=== PATIENT | male | born 1985 | race Caucasian/White ===

== ENCOUNTER → 2017-10-27 | Outpatient (CLI) | payer BC ==
[2015-11-04 12:10] VITALS: BMI 26.7
[~2017-10-27] MED LIST: ASPI81TA94 PO; BUPR-126 PO; HYDR25CA13 PO; MULT-1203 PO; OMEG500C7 PO; QUET100T29 PO; SERT-173 PO
--- NOTE | 2017-10-27 09:00 | RADIOLOGY IMAGING REPORT ---
FACILITY: [facility] - [place] PATIENT NAME: Eduardo Bautista : 1985 MR: [id number] V: [id number] EXAM DATE: ORDERING PHYSICIAN: ELOISE DICKSON TECHNOLOGIST: [place] [facility] [place] Eduardo Bautista : 1985 Visit/Account:[id number] Date of Sevice: 10/27/2017 Exam type: SOFT TISSUE NON-SPECIFIC History: Patient states sensation of a mass and constant pain in the right CVA and surrounding area Comparison: None. Findings: The patient's soft tissues along the inferior aspect right side of the back were imaged sonographical ly revealing no abnormality. This was apparently in the location of patient's reported clinical find ings IMPRESSION: 1. No sonographic abnormalities identified in the soft tissues along the inferior right back. The m ass remains of strong clinical concern a CT or MR is recommended for further evaluation Report Dictated By: Judi Vasquez MD at 10/27/2017 8:51 AM Report E-Signed By: Judi Vasquez MD at 10/27/2017 8:54 AM WSN:[email or web address]
== END ==
LOC: US 01:03
PROVIDERS: ATTEND Family Medicine
DX: M54.9 Dorsalgia, unspecified (principal)
CPT/HCPCS: 76999

== ENCOUNTER → 2018-08-23 | Outpatient (CLI) | payer SELFPAY ==
[2015-11-04 12:10] VITALS: BMI 26.7
--- NOTE | 2018-08-23 17:07 | RADIOLOGY IMAGING REPORT ---
FACILITY: [facility] [place] PATIENT NAME: Eduardo Bautista : 1985 MR: [id number] V: [id number] EXAM DATE: ORDERING PHYSICIAN: [facility] TECHNOLOGIST: Location: [facility] [place] Patient: Eduardo Bautista : 1985 Visit/Account:[id number] Date of Sevice: 08/23/2018 Exam type: SHOULDER MIN 2 VIEWS LEFT History: Left shoulder pain after catching something heavy, decreased range of motion Comparison: None. Findings: Four views of the left shoulder demonstrates no evidence of acute fracture or dislocation or signific ant arthritic change. Incidentally noted are mild degenerative changes at the left AC joint. IMPRESSION: 1. Mild degenerative changes at the left AC joint otherwise unremarkable left shoulder series Report Dictated By: Judi Vasquez MD at 08/23/2018 5:01 PM Report E-Signed By: Judi Vasquez MD at 08/23/2018 5:02 PM WSN:[id number]
== END ==
LOC: RAD 16:42
DX: M19.012 Primary osteoarthritis, left shoulder (principal)

== ENCOUNTER → 2018-10-24 | Outpatient (REF) | payer OTHER ==
[2015-11-04 12:10] VITALS: BMI 26.7
== END ==
LOC: ZZSENDIN 12:00
PROVIDERS: ATTEND Orthopaedic Surgery Hand Surgery
DX: M19.012 Primary osteoarthritis, left shoulder (principal)
CPT/HCPCS: 88304; 88311